=== PATIENT | male | born 2000 | race Caucasian/White ===

== ENCOUNTER 2023-07-25 07:52 | Outpatient (REF) | payer OTHER, SELFPAY ==
--- NOTE | ~2023-07-25 | US_ITS ---
EXAMINATION: US ABDOMEN COMPLETE CLINICAL INFORMATION: Right upper quadrant pain. COMPARISON: None available. TECHNIQUE: Real-time imaging of the abdominal viscera. FINDINGS: PANCREAS: Pancreas is largely obscured by overlying bowel gas. ABDOMINAL AORTA: The proximal, mid, and distal segments are normal in caliber. INFERIOR VENA CAVA: Visualized portions are normal. LIVER: Normal. The liver is normal in size. The liver contour is normal. Parenchymal echogenicity is normal. No focal hepatic lesion. There is no intrahepatic biliary duct dilatation seen. GALLBLADDER: Normal. The gallbladder is physiologically distended without evidence of stones, sludge, polyps, wall thickening or pericholecystic fluid. Sonographic Clark sign is negative. COMMON BILE DUCT: Normal in caliber measuring 0.37 cm in diameter. RIGHT KIDNEY: Normal. No hydronephrosis. No renal calculi or focal parenchymal lesions. The kidney measures 10.7 cm in maximum dimension. LEFT KIDNEY: Normal. No hydronephrosis. No renal calculi or focal parenchymal lesions. The kidney measures 11.0 cm in maximum dimension. SPLEEN: Normal. The spleen measures 15.0 cm in maximum dimension. FREE FLUID: None. ADDITIONAL FINDINGS: In the region of pain along the mid abdomen laterally is a echogenic focus measuring 0.7 x 0.8 x 0.8 cm with significant are similar to that of fat suggesting a lipoma. US/US abdomen complete IMPRESSION: 1. In the region of pain along the mid abdomen laterally is an echogenic focus measuring 0.7 x 0.8 x 0.8 cm with significant are similar to that of fat suggesting a lipoma. 2. Otherwise unremarkable abdominal ultrasound.
== END 2023-07-25 07:53 | disposition home or self-care (01) ==
LOC: HO.UMASIMG 07:52
PROVIDERS: Visit Provider Internal Medicine
DX: R10.811 Right upper quadrant abdominal tenderness (principal)
CPT/HCPCS: 76700